=== PATIENT | male | born 1960 | race Caucasian/White ===

== ENCOUNTER 2017-07-07 10:00 | Day surgery (SDC) | payer OTHER ==
[2017-07-07] VITALS (17 sets, daily range): BP systolic 113–147; BP diastolic 65–80; PULSE 56–78; RESP 10–22; Ht 165.1 cm; Wt 72.7 kg
[~2017-07-07] VITALS: Ht 165.1 cm; Wt 72.7 kg
[~2017-07-07 10:00] MED LIST: LEVO25TA53 PO
[2017-07-07] MEDS ORDERED: EPINEPHrine 1 MG INJ ONE (12:09)
[2017-07-07] MEDS ORDERED: LIDOCAINE 1%/EPI 30 ML INJ ONE (12:09)
[2017-07-07] MEDS ORDERED: COCAINE 4% 4 ML TOP ONE (12:09)
[2017-07-07] MEDS ORDERED: BACITRACIN/POLYMYXIN 28.35 GM OINT TOP ONE (12:09)
[2017-07-07] MEDS ORDERED: GLYCOPYRROLATE 0.4 MG INJ ONE ×2 (12:22→12:58)
[2017-07-07] MEDS ORDERED: CEFAZOLIN 1 GM INJ ONE (12:22)
[2017-07-07] MEDS ORDERED: MIDAZOLAM 1 MG/ML 2 ML INJ ONE (12:22)
[2017-07-07] MEDS ORDERED: PROPOFOL 20 ML ONE (12:22)
[2017-07-07] MEDS ORDERED: FENTAnyl 50 MCG/ML VIAL ONE (12:22)
[2017-07-07] MEDS ORDERED: NEOSTIGMINE 3 MG/3 ML SYRINGE ONE ×2 (12:22→12:58)
[2017-07-07] MEDS ORDERED: ONDANSETRON 4 MG INJ ONE (12:22)
[2017-07-07] MEDS ORDERED: DEXAMETHASONE 4 MG/ML 1 ML INJ ONE (12:22)
[2017-07-07] MEDS ORDERED: ROCURONIUM 50 MG INJ ONE (12:22)
--- NOTE | 2017-07-07 12:32 | HPN ---
Date/Time of Note Date/Time of Note DATE: 07/07/17 TIME: 12:32 Interval H&P Admission Note Pt. seen H&P reviewed: No system changes THERESA OLIVAREZ MD Jul 07, 2017 12:32
[2017-07-07] MEDS ORDERED: IPRATROPIUM (NEB) 0.5 MG/2.5 ML AMP HHN PRN (13:00)
[2017-07-07] MEDS ORDERED: MIDAZOLAM 1 MG/ML 2 ML INJ IV PRN (13:00)
[2017-07-07] MEDS ORDERED: LABETALOL HCL 20MG INJ IV PRN (13:00)
[2017-07-07] MEDS ORDERED: ALBUTEROL 0.083% (NEB) 2.5 MG/3 ML AMP HHN PRN (13:00)
[2017-07-07] MEDS ORDERED: OXYCODONE/ACETAMINOPHEN (5/325) TAB PO PRN ×3 (13:00→13:30)
[2017-07-07] MEDS ORDERED: hydrALAzine 20 MG INJ IV PRN (13:00)
[2017-07-07] MEDS ORDERED: MEPERIDINE 25 MG INJ IV PRN (13:00)
[2017-07-07] MEDS ORDERED: HYDROmorphONE (0.2 MG/ML) 10ML SYG IV PRN ×2 (13:00)
[2017-07-07] MEDS ORDERED: EPHEDrine SULFATE 50 MG/5 ML SYG IV PRN (13:00)
[2017-07-07] MEDS ORDERED: TRIMETHOBENZAMIDE 100 MG/ML VIAL IM PRN (13:00)
[2017-07-07] MEDS ORDERED: FENTAnyl 50 MCG/ML VIAL IV PRN ×2 (13:00)
[2017-07-07] MEDS ORDERED: DIPHENHYDRAMINE 50 MG INJ IV PRN (13:00)
[2017-07-07] MEDS ORDERED: ONDANSETRON 4 MG INJ IV PRN (13:00)
--- NOTE | 2017-07-07 13:15 | OPR ---
Date/Time of Note Date/Time of Note DATE: 07/07/17 TIME: 13:13 Operative Report Procedure Date: Jul 07, 2017 Preoperative Diagnosis DNS, ITH Postoperative Diagnosis Same Operation/Procedure Performed Septoplaty, submucous resection of inferior turbinates Surgeon Theresa Ravi Autocad Operator None Anesthesia Type: general Estimated Blood Loss: 10 - 50 ml's Transfusion none Specimen None Grafts/Implants none Complications none Pt Condition Post Procedure: stable Disposition: PACU Indications Nasal congestion, unresponsive to medical management. Procedure Description Description of procedure: The patient was identified in the holding area. We had a discussion to confirm understanding of all indications risks benefits alternatives and postoperative care associated with the operation. The patient signed informed consent was taken to the operating room. The patient was laid supine on the operating room table and general anesthesia was achieved without difficulty. The face was draped in sterile fashion and the nose was packed with 4% cocaine pledgets. The nasal septum was infiltrated with 5 cc of 1% lidocaine with epinephrine in the submucoperiosteal plane bilaterally. A left sided [place] incision was made and submucoperichondreal flaps were raised. The bony cartilaginous junction of the septum was identified and entered. A deviated segments of bone and cartilage were isolated. A double- action scissor was used to transect the bony deviated segment of the skull base after which a Mandie forcep was used to resect deviated segment of bone and cartilage. Care was taken to avoid excess cartilaginous resection. The flaps were returned to normal position and anterior rhinoscopy reveals midline septum. At this point the right inferior turbinate was medialized with a [place] elevator. The Coblation wand on a setting of 6 was used to enter the turbinate in the inferior medial submucosal compartment. 10 seconds of Coblation were performed at the 3rd 2nd and 1st edwards after which the turbinate was crushed laterally into the lateral nasal wall with a [place] elevator. The contralateral turbinate was addressed in similar fashion to complete the bilateral submucous resection and lateral fracturing of the inferior turbinates. Septal flaps were replaced and secured with a 40 fast-absorbing gut whip stitch. A Merocel pack was placed on each side. The patient was awakened, extubated and taken to the PACU in stable condition. Complications: None. THERESA RAVI MD Jul 07, 2017 13:15
[2017-07-07] MEDS: FENTAnyl 50 MCG/ML VIAL IV PRN ×2 (13:31→13:38)
[2017-07-07] MEDS: HYDROmorphONE (0.2 MG/ML) 10ML SYG IV PRN ×3 (13:51→14:06)
== END 2017-07-07 15:30 | disposition home or self-care (01) ==
LOC: SUR 10:00 → SDS 10:00 → SUR 15:30
PROVIDERS: ATTEND Otolaryngology
DX: J34.2 Deviated nasal septum (principal); E03.9 Hypothyroidism, unspecified
CPT/HCPCS: 30140; 30520; J0171; J0690; J1100; J1170; J2250; J2405; J3010; Z7512; Z7610; J2710

== ENCOUNTER 2019-03-04 17:41 | Inpatient (IN) | payer OTHER ==
[~2019-03-04] VITALS: Ht 165.1 cm; Wt 72.0 kg
[~2019-03-04 17:41] MED LIST changes: -LEVO25TA53 PO; +LEVO25TA6 PO
[2019-03-04] MEDS ORDERED: KETOROLAC 30 MG INJ IM STA (18:04)
[2019-03-04] MEDS ORDERED: ONDANSETRON (ODT) 4 MG TAB ODT STA (18:04)
[2019-03-04] MEDS ORDERED: HYDROmorphONE 1 MG/ML SYG IV STA (18:16)
[2019-03-04] MEDS ORDERED: ONDANSETRON 4 MG INJ IV STA ×2 (18:16→21:39)
[2019-03-04] MEDS ORDERED: SOD CHLORIDE 0.9% 1,000 ML IV STA (18:16)
[2019-03-04] MEDS ORDERED: KETOROLAC 30 MG INJ IV STA (18:16)
[2019-03-04] MEDS ORDERED: HYDROmorphONE 2 MG/ML SYG IV STA ×2 (19:42→21:39)
[2019-03-04] MEDS ORDERED: ONDANSETRON 4 MG INJ IV PRN ×2 (20:00→21:30)
[2019-03-04] MEDS ORDERED: ACETAMINOPHEN 325 MG TAB PO PRN ×2 (20:00→21:30)
--- NOTE | 2019-03-04 20:38 | ERD ---
ER Documentation Chief Complaint Chief Complaint left flank pain w/blood in urine since last night HPI Patient is a 58-year-old male with a history of kidney stone and thyroid disease who presents with left lower quadrant abdominal pain and flank pain. It started at 8 AM and has been constant and sharp in nature. He went to [facility] today and was discharged. He was given [place] and Flomax. He came back to the emergency department because his pain was not controlled with the [place] at home and is having significant pain. Upon review of old medical records this is the patient's second visit to the ER since 2008. ROS All systems reviewed and are negative except as per history of present illness. Medications Home Meds Reported Medications Levothyroxine Sodium* (Levothyroxine Sodium*) 25 Mcg Tablet, 25 MCG PO BEFORE BREAKFAST, #30 TAB 07/06/17 Allergies Allergies: Coded Allergies: No Known Allergy (Verified , 07/07/17) PMhx/Soc History of Surgery: No Anesthesia Reaction: No Hx Neurological Disorder: No Hx Respiratory Disorders: Yes (ALLERGIC RHINITIS) Hx Cardiac Disorders: No Hx Psychiatric Problems: No Hx Miscellaneous Medical Probl: No Hx Alcohol Use: Yes (OCCASIONA) Hx Substance Use: No Hx Tobacco Use: No Smoking Status: Never smoker FmHx Family History: No diabetes Physical Exam Vitals Vital Signs Date Temp Pulse Resp B/P (MAP) Pulse Ox O2 O2 Flow FiO2 Time Delivery Rate 03/04/19 98.1 72 18 121/59 99 17:54 (79) Physical Exam Const: Moderate distress Head: Atraumatic Eyes: Normal Conjunctiva ENT: Normal External Ears, Nose and Mouth. Neck: Full range of motion. No meningismus. Resp: Clear to auscultation bilaterally Cardio: Regular rate and rhythm, no murmurs Abd: Soft, left lower quadrant tenderness to palpation Skin: No petechiae or rashes Back: No midline or flank tenderness Ext: No cyanosis, or edema Neur: Awake and alert Psych: Normal Mood and Affect Result Diagram: 03/04/19181303/04/191813 Results 24 hrs Laboratory Tests Test 03/04/19 18:14 White Blood Count 11.9 10^3/ul Red Blood Count 4.64 10^6/ul Hemoglobin 14.7 g/dl Hematocrit 43.6 % Mean Corpuscular Volume 94.0 fl Mean Corpuscular Hemoglobin 31.7 pg Mean Corpuscular Hemoglobin Concent 33.7 g/dl Red Cell Distribution Width 12.2 % Platelet Count 164 10^3/UL Mean Platelet Volume 9.8 fl Immature Granulocytes % 0.400 % Neutrophils % 76.3 % Lymphocytes % 11.2 % Monocytes % 7.5 % Eosinophils % 4.1 % Basophils % 0.5 % Nucleated Red Blood Cells % 0.0 /100WBC Immature Granulocytes # 0.050 10^3/ul Neutrophils # 9.0 10^3/ul Lymphocytes # 1.3 10^3/ul Monocytes # 0.9 10^3/ul Eosinophils # 0.5 10^3/ul Basophils # 0.1 10^3/ul Nucleated Red Blood Cells # 0.0 10^3/ul Sodium Level 138 mmol/L Potassium Level 4.3 mmol/L Chloride Level 106 mmol/L Carbon Dioxide Level 26 mmol/L Anion Gap 6 Blood Urea Nitrogen 15 mg/dl Creatinine 0.99 mg/dl Est Glomerular Filtrat Rate mL/min > 60 mL/min Glucose Level 130 mg/dl Calcium Level 9.3 mg/dl Total Bilirubin 0.7 mg/dl Direct Bilirubin 0.00 mg/dl Indirect Bilirubin 0.7 mg/dl Aspartate Amino Transf (AST/SGOT) 32 IU/L Alanine Aminotransferase (ALT/SGPT) 28 IU/L Alkaline Phosphatase 99 IU/L Total Protein 6.9 g/dl Albumin 4.1 g/dl Globulin 2.80 g/dl Albumin/Globulin Ratio 1.46 Lipase 1420 U/L Current Medications Medications Dose Sig/Benson Start Time Status Last (Trade) Ordered Route PRN Stop Time Admin Dose Reason Admin Ketorolac 30 mg ONCE STAT 03/04/19 DC Tromethamine IM 18:04 03/04/19 (Toradol) 18:17 Ondansetron 4 mg ONCE STAT 03/04/19 DC HCl (Zofran ODT 18:04 03/04/19 Odt) 18:17 Sodium 1,000 ml @ Q1H STAT 03/04/19 DC 03/04/19 Chloride 1,000 mls/hr IV 18:16 03/04/19 18:23 19:15 1 mg ONCE STAT 03/04/19 DC 03/04/19 Hydromorphone IV 18:16 03/04/19 18:24 HCl 18:18 (Dilaudid) Ondansetron 4 mg ONCE STAT 03/04/19 DC 03/04/19 HCl (Zofran IV 18:16 03/04/19 18:24 Inj) 18:18 Ketorolac 30 mg ONCE STAT 03/04/19 DC 03/04/19 Tromethamine IV 18:16 03/04/19 18:24 (Toradol) 18:18 1 mg ONCE STAT 03/04/19 DC 03/04/19 Hydromorphone IV 19:42 03/04/19 19:46 HCl 19:43 (Dilaudid) Ondansetron 4 mg BRIDGE ORDER 03/04/19 HCl (Zofran PRN IV 20:00 Inj) NAUSEA/VOMITI 03/05/19 19:59 NG 650 mg ER BRIDGE 03/04/19 Acetaminophen PRN PO 20:00 (Tylenol .MILD PAIN 03/05/19 19:59 Tab) 1-3 OR TEMP Procedures/MDM CT scan of the abdomen and pelvis shows 4 mm kidney stone per radiology. Patient is a 58-year-old male who presents with significant abdominal and flank pain. He was found to have a 4 mm obstructing kidney stone. He was also found to have acute pancreatitis with a lipase of 1420. The patient was given 2 doses of Dilaudid. Urine sample is pending. The patient will be admitted to the care of Dr. Ugarte to a medical surgical bed. Dr. Higgins will consult on the patient as well from urology. Departure Diagnosis: Primary Impression: Pancreatitis Chronicity: acute Pancreatitis type: unspecified pancreatitis type Acute pancreatitis complication: unspecified Qualified Codes: K85.90 - Acute pancreatitis without necrosis or infection, unspecified Additional Impressions: Kidney stone Flank pain Condition: TANNER Scott MD Mar 04, 2019 20:38
--- NOTE | 2019-03-04 20:45 | CONS ---
Assessment/Plan Assessment/Plan Hospital Course (Demo Recall) 58-year-old male presented to the emergency room because of persistent left flank pain associated with nausea and vomiting. He initially went to [facility] and was sent home on [place] and tamsulosin. However the oral medication was not controlling his pain so he presented to the hospital at [facility]. He also reports having hematuria. CT scan of the abdomen and pelvis did show: 4 mm stone in the distal left ureter results in mild left-sided perinephric fat stranding and mild ectasia of the left ureter. No evidence of bowel obstruction or inflammation. Atherosclerotic disease is present. Patient continues to have left flank pain and that radiates to his left testicle. He still has nausea but no vomiting. Impression: 4 mm distal left ureteral stone causing him the pain in addition to the nausea and vomiting and the hematuria. He should be able to pass the stone on his own. Plan: Strain the urine for stones, pain medications, KUB, tamsulosin 0.4 mg daily. Consultation Date/Type/Reason Admit Date/Time Date of Consultation: Mar 04, 2019 Type of Consult Urology Reason for Consultation Distal left ureteral stone Requesting Provider: SAMUEL CROOK Date/Time of Note DATE: 03/04/19 TIME: 20:44 Hx of Present Illness 58-year-old male presented to the emergency room because of persistent left flank pain associated with nausea and vomiting. He initially went to [facility] and was sent home on [place] and tamsulosin. However the oral medication was not controlling his pain so he presented to the hospital at [facility]. He also reports having hematuria. CT scan of the abdomen and pelvis did show: 4 mm stone in the distal left ureter results in mild left-sided perinephric fat stranding and mild ectasia of the left ureter. No evidence of bowel obstruction or inflammation. Atherosclerotic disease is present. Patient continues to have left flank pain and that radiates to his left testicle. He still has nausea but no vomiting. Constitutional: no complaints Eyes: no complaints ENT: no complaints Respiratory: no complaints; No wheezing Cardiovascular: no complaints; No chest pain Gastrointestinal: nausea, vomiting (On admission) Genitourinary: flank pain (Left side) Musculoskeletal: no complaints Skin: no complaints Neurologic: no complaints Endocrine: other (Hypothyroidism) Lymphatic: no complaints Psychological: no complaints Past Medical History Medical History: hypothyroid Home Meds Reported Medications Levothyroxine Sodium* (Levothyroxine Sodium*) 25 Mcg Tablet, 25 MCG PO BEFORE BREAKFAST, #30 TAB 07/06/17 Medications Current Medications Ondansetron HCl (Zofran Inj) 4 mg BRIDGE ORDER PRN IV NAUSEA/VOMITING Last administered on 03/04/19at 20:39; Admin Dose 4 MG; Start 03/04/19 at 20:00; Stop 03/05/19 at 19:59 Acetaminophen (Tylenol Tab) 650 mg ER BRIDGE PRN PO .MILD PAIN 1-3 OR TEMP; Start 03/04/19 at 20:00; Stop 03/05/19 at 19:59 Allergies: Coded Allergies: No Known Allergy (Verified , 07/07/17) Past Surgical History Past Surgical Hx: other (Left shoulder surgery) Social History Alcohol Use: occasionally Smoking Status: Never smoker Drug Use: none Exam/Review of Systems Exam Vitals Vital Signs Date Temp Pulse Resp B/P (MAP) Pulse Ox O2 O2 Flow FiO2 Time Delivery Rate 03/04/19 98.1 72 18 121/59 99 17:54 (79) Constitutional: alert Psych: no complaints Head: normocephalic Eyes: nl conjunctiva ENMT: nl external ears & nose Neck: supple Respiratory: normal air movement; No wheezing Cardiovascular: No jugular venous distention (JVD) Gastrointestinal: soft Genitourinary - Male: nl penis, nl scrotum, CVA tenderness (Left side) Musculoskeletal: nl extremities to inspection Extremities: No calf tenderness Neurological: nl mental status Skin: nl turgor Results Result Diagram: 03/04/19181303/04/194 Results 24hrs Laboratory Tests Test 03/04/19 18:14 White Blood Count 11.9 H Red Blood Count 4.64 L Hemoglobin 14.7 Hematocrit 43.6 Mean Corpuscular Volume 94.0 Mean Corpuscular Hemoglobin 31.7 Mean Corpuscular Hemoglobin Concent 33.7 Red Cell Distribution Width 12.2 Platelet Count 164 Mean Platelet Volume 9.8 Immature Granulocytes % 0.400 Neutrophils % 76.3 Lymphocytes % 11.2 L Monocytes % 7.5 Eosinophils % 4.1 Basophils % 0.5 Nucleated Red Blood Cells % 0.0 Immature Granulocytes # 0.050 H Neutrophils # 9.0 H Lymphocytes # 1.3 Monocytes # 0.9 Eosinophils # 0.5 Basophils # 0.1 Nucleated Red Blood Cells # 0.0 Sodium Level 138 Potassium Level 4.3 Chloride Level 106 Carbon Dioxide Level 26 Anion Gap 6 Blood Urea Nitrogen 15 Creatinine 0.99 Est Glomerular Filtrat Rate mL/min > 60 Glucose Level 130 Calcium Level 9.3 Total Bilirubin 0.7 Direct Bilirubin 0.00 Indirect Bilirubin 0.7 Aspartate Amino Transf (AST/SGOT) 32 Alanine Aminotransferase (ALT/SGPT) 28 Alkaline Phosphatase 99 Total Protein 6.9 Albumin 4.1 Globulin 2.80 Albumin/Globulin Ratio 1.46 Lipase [address] scan of the abdomen and pelvis: 4 mm stone in the distal left ureter results in mild left-sided perinephric fat stranding and mild ectasia of the left ureter. No evidence of bowel obstruction or inflammation. Atherosclerotic disease is present. Medications Medication Current Medications Ondansetron HCl (Zofran Inj) 4 mg BRIDGE ORDER PRN IV NAUSEA/VOMITING Last administered on 03/04/19at 20:39; Admin Dose 4 MG; Start 03/04/19 at 20:00; Stop 03/05/19 at 19:59 Acetaminophen (Tylenol Tab) 650 mg ER BRIDGE PRN PO .MILD PAIN 1-3 OR TEMP; Start 03/04/19 at 20:00; Stop 03/05/19 at 19:59 JACINTA ONEILL MD Mar 04, 2019 20:45
[2019-03-04] MEDS: SOD CHLORIDE 0.9% 1,000 ML IV SCH (21:21)
[2019-03-04] MEDS ORDERED: DOCUSATE SODIUM 100 MG CAP PO PRN (21:30)
[2019-03-04] MEDS ORDERED: NACL 0.9% 3 ML SYG IV SCH (21:30)
[2019-03-04] MEDS: TAMSULOSIN (SR) 0.4 MG CAP PO ONE ×2 (21:30→23:09)
[2019-03-04] MEDS ORDERED: BISACODYL (EC) 5 MG TAB PO PRN (21:30)
--- NOTE | 2019-03-04 22:19 | HP ---
Date/Time of Note Date/Time of Note DATE: 03/04/19 TIME: 22:18 Assessment/Plan VTE Prophylaxis SCD applied (from Nsg): Yes Pharmacological prophylaxis: NA/contraindicated Pharm contraindication: low risk/ambulating Lines/Catheters IV Catheter Type (from Nrsg): Saline Lock Assessment/Plan Hospital Course This is a 58-year-old male being admitted to the [facility] floor for: #1 left-sided renal colic: Secondary to left-sided 4 mm nephrolithiasis. Aggressive IV fluid hydration with normal saline at 150 cc an hour. PRN Dilaudid, Toradol for pain. Flomax. Dr. sainz of urology has been consulted by the er. Will obtain a urinalysis. Patient is afebrile #2 chemical pancreatitis: Patient has a lipase level of 1400. He denies any abdominal pain, and epigastric non tender to deep palpation. We will keep the patient n.p.o. except meds. Will provide aggressive IV fluid hydration with normal saline. We will repeat a lipase in the a.m. Patient denies any alcohol use. Ultrasound of the gallbladder and CT of the abdomen pelvis did not show any signs of acute pancreatitis or any gallstones. #3 hypothyroidism: Continue levothyroxine, check TSH #4 right testicle symphysis: 2 mm simple cyst in peripheral upper right testicle. Urology is already been consulted. #5 DVT GI prophylaxis: SCDs, no GI prophylaxis indicated Further treatment strategy will be implemented as per the clinical course. Result Diagram: 03/04/194 03/04/19 1814 Results 24hrs Laboratory Tests Test 03/04/19 18:14 White Blood Count 11.9 H Red Blood Count 4.64 L Hemoglobin 14.7 Hematocrit 43.6 Mean Corpuscular Volume 94.0 Mean Corpuscular Hemoglobin 31.7 Mean Corpuscular Hemoglobin Concent 33.7 Red Cell Distribution Width 12.2 Platelet Count 164 Mean Platelet Volume 9.8 Immature Granulocytes % 0.400 Neutrophils % 76.3 Lymphocytes % 11.2 L Monocytes % 7.5 Eosinophils % 4.1 Basophils % 0.5 Nucleated Red Blood Cells % 0.0 Immature Granulocytes # 0.050 H Neutrophils # 9.0 H Lymphocytes # 1.3 Monocytes # 0.9 Eosinophils # 0.5 Basophils # 0.1 Nucleated Red Blood Cells # 0.0 Sodium Level 138 Potassium Level 4.3 Chloride Level 106 Carbon Dioxide Level 26 Anion Gap 6 Blood Urea Nitrogen 15 Creatinine 0.99 Est Glomerular Filtrat Rate mL/min > 60 Glucose Level 130 Calcium Level 9.3 Total Bilirubin 0.7 Direct Bilirubin 0.00 Indirect Bilirubin 0.7 Aspartate Amino Transf (AST/SGOT) 32 Alanine Aminotransferase (ALT/SGPT) 28 Alkaline Phosphatase 99 Total Protein 6.9 Albumin 4.1 Globulin 2.80 Albumin/Globulin Ratio 1.46 Lipase 1420 H HPI/ROS Admit Date/Time Admit Date/Time Hx of Present Illness Chief complaint: Left-sided flank pain This is a 58-year-old male with a history of kidney stone and thyroid disease who presents with left lower quadrant abdominal pain and flank pain. It started at 8 AM and has been constant and sharp in nature. He went to [facility] today and was discharged. He was given [place] and Flomax. He came back to the emergency department because his pain was not controlled with the [place] at home and is having significant pain. Patient reports that he had left flank pain is rating down to his left lower abdomen. He did have an episode of vomiting. He denies any abdominal pain. He denies any recent alcohol use. Allergies: NKDA Medications: Levothyroxine 25 mg p.o. daily ROS Const: As per HPI Eyes : No pain discharge or redness or change in visual acuity ENT: No pain, sore throat, congestion, congestion, dysphagia or discharge Respiratory: No shortness of breath, cough, sputum, wheezing, or pleuritic pain Cardiovascular: No chest pain, palpitation, PND, or edema GI : no change in appetite, abdominal pain, nausea, vomiting, diarrhea, constipation, or change in the color his stool Genitourinary: As per HPI Musculoskeletal: No joint pain, back pain, neck pain, restricted range of motion in neck or joints Skin: No rash, bruising or hives Neuro: No headache, dizziness, syncope, seizure, focal weakness Endocrine: No polyuria, polydipsia, temperature intolerance Psych: No hallucination, depression, anxiety or suicidal ideation PMH/Family/Social Past Medical History Nephrolithiasis Hypothyroidism Medications Current Medications Ondansetron HCl (Zofran Inj) 4 mg BRIDGE ORDER PRN IV NAUSEA/VOMITING Last administered on 03/04/19at 20:39; Admin Dose 4 MG; Start 03/04/19 at 20:00; Stop 03/05/19 at 19:59 Acetaminophen (Tylenol Tab) 650 mg ER BRIDGE PRN PO .MILD PAIN 1-3 OR TEMP; Start 03/04/19 at 20:00; Stop 03/05/19 at 19:59 Sodium Chloride 1,000 ml @ 150 mls/hr Q6H40M IV ; Start 03/04/19 at 21:21 IV Flush (NS 3 ml) 3 ml PER PROTOCOL IV ; Start 03/04/19 at 21:30 Ondansetron HCl (Zofran Inj) 4 mg Q6H PRN IV NAUSEA/VOMITING; Start 03/04/19 at 21:30 Acetaminophen (Tylenol Tab) 650 mg Q6H PRN PO .PAIN 1-3 OR TEMP; Start 03/04/19 at 21:30 Hydromorphone HCl (Dilaudid) 0.5 mg Q4H PRN IV .SEVERE PAIN 7-10; Start 03/04/19 at 21:30 Docusate Sodium (Colace) 100 mg Q12H PRN PO .CONSTIPATION; Start 03/04/19 at 21:30 Bisacodyl (Dulcolax) 5 mg DAILY PRN PO .CONSTIPATION; Start 03/04/19 at 21:30 Tamsulosin HCl (Flomax) 0.4 mg BID PO ; Start 03/05/19 at 09:00 Coded Allergies: No Known Allergy (Verified , 07/07/17) Past Surgical History Left shoulder surgery Family History Significant Family History: no pertinent family hx Social History Alcohol Use: none Smoking Status: Never smoker Drug Use: none Exam/Review of Systems Vital Signs Vitals Vital Signs Date Temp Pulse Resp B/P (MAP) Pulse Ox O2 O2 Flow FiO2 Time Delivery Rate 03/04/19 70 13 100/59 96 Room Air 21:15 (73) 03/04/19 98.1 17:54 Exam Exam General: Patient is a pleasant male currently lying in bed in no acute distress HEENT: Atraumatic, normocephalic. The pupils are equal, round and reactive. Extraocular motor are intact Neck: Supple with full range of motion. No rigidity or meningismus Chest: Nontender Lungs: Clear to auscultation bilaterally no crackles rales or wheezing Heart: Normal S1-S2, Regular rhythm and rate. No murmur, S3, or S4 Abdomen: Soft , mild suprapubic tenderness palpation, no epigastric tenderness to deep palpation. nondistended , bowel sounds are present. No guarding no rebound tenderness , No masses or organomegaly. No CVA tenderness bilaterally (though he did receive pain medications earlier). Extremities: Normal to inspection, no edema no cyanosis Neurologic: Normal mental status, speech normal, cranial nerves II through XII are intact, motor and sensory are intact, no focal weakness Additional Comments PROCEDURE: US Abdomen (right upper quadrant). CLINICAL INDICATION: Right upper quadrant abdomen pain. TECHNIQUE: Multiple real-time longitudinal and transverse images of the right upper quadrant of the abdomen were acquired utilizing a curved array transducer. Images were reviewed on a high-resolution PACS workstation. COMPARISON: 09/24/2018 FINDINGS: The liver is normal in size and normal in echogenicity. There is no focal hepatic lesion. Color Doppler and pulsed Doppler sonography demonstrate normal antegrade flow in the portal vein. The gallbladder is normal with no stones or wall thickening. The bile ducts are normal with the common bile duct measuring 4.2 mm in diameter. The visualized portions of the pancreas are unremarkable with obscuration of the tail of the pancreas. No free fluid is present. The right kidney measures 10.6 cm. There is normal echogenicity of the right kidney. The left kidney measures 10.8 cm. There is no perinephric fluid collection. There are several small echogenic focus within the left kidney. The largest measures 5 mm. IMPRESSION: Left nephrolithiasis. No hydronephrosis. No cholelithiasis. No biliary dilatation. RPTAT: QQ Physician Pelon Date Time Electronically viewed and signed by Physician Pelon on 03/04/2019 20:55 RD/ CC: TANNER SR MD [id number] PROCEDURE: XR Abdomen. CLINICAL INDICATION: Flank pain TECHNIQUE: Supine AP view of the abdomen. COMPARISON: CT abdomen pelvis dated 03/04/2019 FINDINGS: There are no dilated loops of small bowel to suggest a bowel obstruction. Gas and stool are seen within nondilated large bowel. No abnormal calcifications are identified. The distal left ureteral stone seen in the prior CT is not visible in this examination. IMPRESSION: The distal left ureteral stone seen in the prior CT is not visible in this examination. Nonobstructive bowel gas pattern. RPTAT: HTAR .Trevor Louie MD, MD Date Time Electronically viewed and signed by .Trevor Louie MD, MD on 03/04/2019 20:45 .R/ CC: TANNER SR MD [id number] PROCEDURE: CT abdomen and pelvis without contrast. CLINICAL INDICATION: Abdominal pain. TECHNIQUE: CT scan of the abdomen and pelvis without contrast was performed on a multi-slice CT scanner . Sagittal and coronal reformatted images were obtained from the axial source images. One or more of the following dose reduction techniques were used: - Automated exposure control. - Adjustment of the mA and/or kV according to patient size. - Use of iterative reconstruction technique. DICOM images are available DLP 601.2 mGycm. CTDIvol 10.1 mGy COMPARISON: 02/14/2014 FINDINGS: Fine detail of the soft tissues is limited secondary to the lack of IV contrast. Evaluation for enhancing lesions cannot be performed. Lower thorax:The lung bases are clear. Coronary artery calcifications are seen in the heart. Liver: There is uniform density of the liver with no gross focal lesion. Biliary: The gallbladder is unremarkable without surrounding inflammation. No biliary dilatation. Pancreas: Homogeneous density of the pancreas without visible focal lesion or cystic abnormality. There is no pancreatic ductal dilatation. Spleen: Unremarkable without enlargement or focal lesion. Adrenal Glands: The adrenal glands are within normal limits without mass. Urinary: There is a stone at the left distal left ureter slightly proximal to the UVJ measuring 4 mm and this results and mild ectasia of the left renal pelvis and ureter with mild fat stranding around the left kidney. No right-sided renal or ureteral stone is present with no right-sided hydronephrosis. Gastrointestinal: No evidence of bowel obstruction or inflammation. The appendix is not visualized. Lymph nodes: There are no enlarged lymph nodes. Vascular: There is aortic atherosclerosis without aneurysmal dilatation. Peritoneum/mesentery: No free fluid or free air. Reproductive organs: The prostate is grossly unremarkable. Musculoskeletal: Degenerative changes are seen in the lumbar spine with no acute osseous abnormality. Small fat containing left knee is present. Other: None IMPRESSION: 4 mm stone in the distal left ureter results in mild left-sided perinephric fat stranding and mild ectasia of the left ureter. No evidence of bowel obstruction or inflammation. Atherosclerotic disease is present. RPTAT: AA .Rere Abbott MD, Date Time Electronically viewed and signed by .Rere Abbott MD, MD on 03/04/2019 19:12 .J/ CC: TANNER SR MD [id number]: US Scrotum. CLINICAL INDICATION: Left testicular pain TECHNIQUE: Multiple sonographic images of the scrotal region were obtained utilizing a linear array transducer with grayscale and color-flow Doppler imaging. The images were reviewed on a high-resolution PACS workstation. COMPARISON: US PELVIS 02/13/2014 FINDINGS: The right testicle is well visualized and has a normal echotexture. There is a 2 mm simple cyst in the peripheral upper right testicle. The right testicle measures right testicle cm. There is normal color-flow arterial and venous flow. The right epididymis is visualized and there is a 2 mm epididymal cyst in the epididymal head. There is normal color-flow. A small right hydrocele. The left testicle is well visualized and has a normal echotexture. No focal areas of abnormal echogenicity are visualized. The left testicle measures left testicle cm. There is normal color-flow, arterial and venous flow. The left epididymis is visualized and is unremarkable in appearance. There is normal color-flow. There is a small left hydrocele. The scrotal wall is unremarkable. No swelling or edema is seen. No other incidental abnormality is identified. IMPRESSION: 2 mm simple cyst in peripheral upper right testicle. No testicular mass seen. Small right epididymal cyst. Small bilateral hydroceles. No evidence of testicular torsion. RPTAT: HJES .Edwin Rg MD, Date Time Electronically viewed and signed by .Edwin Rg MD, on 03/04/2019 19:10 .S/ CC: TANNER SR MD [id number] SAMUEL CROOK Mar 04, 2019 22:19
[2019-03-04 22:50] VITALS: Ht 165.1 cm; Wt 72.0 kg
[2019-03-05] MEDS ORDERED: ONDANSETRON 4 MG INJ IV PRN (02:00)
[2019-03-05] MEDS ORDERED: METOCLOPRAMIDE 10 MG INJ IV PRN (02:30)
[2019-03-05] MEDS: TAMSULOSIN (SR) 0.4 MG CAP PO SCH ×2 (05:06→20:54)
[2019-03-05] MEDS: SOD CHLORIDE 0.9% 1,000 ML IV SCH ×4 (06:31→20:55)
[2019-03-05 07:32] VITALS: BP 105/58; PULSE 68; RESP 18
[2019-03-05] MEDS ORDERED: SOD CHLORIDE 0.9% 500 ML IV ONE (08:30)
--- NOTE | 2019-03-05 09:50 | PN ---
Date/Time of Note Date/Time of Note DATE: 03/05/19 TIME: 09:45 Assessment/Plan VTE Prophylaxis SCD applied (from Nsg): Yes Pharmacological prophylaxis: NA/contraindicated Pharm contraindication: low risk/ambulating Lines/Catheters IV Catheter Type (from Nrsg): Peripheral IV Assessment/Plan Assessment/Plan 58 yo man with L nephrolithiasis. #1 left-sided renal colic: Secondary to left-sided 4 mm nephrolithiasis. Aggressive IV fluid hydration with normal saline at 150 cc an hour. PRN Dil audid, Toradol for pain. Flomax. Dr. Higgins of urology has been consulted. Patient is afebrile. Currently not requiring antibiotics. #2 Elevated lipase: Patient had a lipase level of 1400 on admission, but this has normalized. No epigastric pain or tenderness. He does have nausea and vomited this morning, this may have been due to pain from nephrolithiasis. Will advance diet cautiously. #3 hypothyroidism: Continue levothyroxine #4 right testicle symphysis: 2 mm simple cyst in peripheral upper right testicle. Urology is already been consulted. #4 DVT GI prophylaxis: SCDs, no GI prophylaxis indicated Result Diagram: 03/05/1944003/05/19440 Subjective 24 Hr Interval Summary Free Text/Dictation No acute overnight events. Patient says he vomited once this morning. Last bowel movement yesterday morning. No diarrhea or constipation otherwise. Pain is adequately controlled on current regimen. Exam/Review of Systems Exam Vitals Vital Signs Date Temp Pulse Resp B/P (MAP) Pulse Ox O2 O2 Flow FiO2 Time Delivery Rate 03/05/19 97.8 68 18 105/58 98 Room Air 07:32 (74) Intake and Output 03/04/19 03/04/19 03/05/19 1515:00 23:00 07:00 IntakeIntake Total 1000 ml OutputOutput Total 200 ml BalanceBalance 800 ml Exam General: Patient is a pleasant male currently lying in bed in no acute distress HEENT: Atraumatic, normocephalic. The pupils are equal, round and reactive. Extraocular motor are intact Neck: Supple with full range of motion. No rigidity or meningismus Chest: Nontender Lungs: Clear to auscultation bilaterally no crackles rales or wheezing Heart: Normal S1-S2, Regular rhythm and rate. No murmur, S3, or S4 Abdomen: Soft , moderate L flank and LLQ tenderness to palpation. Nondistended. Normoactive bowel sounds. No guarding or rebound tenderness. Extremities: Normal to inspection, no edema no cyanosis Results Results 24hrs Laboratory Tests Test 03/04/19 18:14 03/05/19 04:41 03/05/19 08:45 White Blood Count 11.9 H 7.9 # Red Blood Count 4.64 L 4.09 L Hemoglobin 14.7 13.1 L Hematocrit 43.6 39.8 L Mean Corpuscular Volume 94.0 97.3 Mean Corpuscular Hemoglobin 31.7 32.0 Mean Corpuscular Hemoglobin Concent 33.7 32.9 Red Cell Distribution Width 12.2 12.3 Platelet Count 164 145 Mean Platelet Volume 9.8 10.1 Immature Granulocytes % 0.400 0.300 Neutrophils % 76.3 74.7 Lymphocytes % 11.2 L 13.0 L Monocytes % 7.5 10.3 Eosinophils % 4.1 1.3 Basophils % 0.5 0.4 Nucleated Red Blood Cells % 0.0 0.0 Immature Granulocytes # 0.050 H 0.020 Neutrophils # 9.0 H 5.9 Lymphocytes # 1.3 1.0 Monocytes # 0.9 0.8 Eosinophils # 0.5 0.1 Basophils # 0.1 0.0 Nucleated Red Blood Cells # 0.0 0.0 Sodium Level 138 138 Potassium Level 4.3 4.8 Chloride Level 106 107 Carbon Dioxide Level 26 28 Anion Gap 6 3 L Blood Urea Nitrogen 15 18 Creatinine 0.99 1.28 H Est Glomerular Filtrat Rate mL/min > 60 58 L Glucose Level 130 107 Calcium Level 9.3 8.5 Total Bilirubin 0.7 0.6 Direct Bilirubin 0.00 0.00 Indirect Bilirubin 0.7 0.6 Aspartate Amino Transf (AST/SGOT) 32 37 Alanine Aminotransferase (ALT/SGPT) 28 26 Alkaline Phosphatase 99 75 Total Protein 6.9 5.9 #L Albumin 4.1 3.4 Globulin 2.80 2.50 Albumin/Globulin Ratio 1.46 1.36 Lipase 1420 H 156 Amylase Level 150 H Urine Color YELLOW Urine Clarity CLEAR Urine pH 5.0 Urine Specific [place] 1.025 Urine Ketones TRACE A Urine Nitrite NEGATIVE Urine Bilirubin NEGATIVE Urine Urobilinogen NEGATIVE Urine Leukocyte Esterase NEGATIVE Urine Microscopic RBC 7 H Urine Microscopic WBC 1 Urine Mucus FEW A Urine Hemoglobin 2+ H Urine Glucose NEGATIVE Urine Total Protein 1+ H Medications Medication Current Medications Sodium Chloride 1,000 ml @ 150 mls/hr Q6H40M IV Last administered on 03/05/19at 06:31; Admin Dose 150 MLS/HR; Start 03/04/19 at 21:21 IV Flush (NS 3 ml) 3 ml PER PROTOCOL IV ; Start 03/04/19 at 21:30 Acetaminophen (Tylenol Tab) 650 mg Q6H PRN PO .PAIN 1-3 OR TEMP; Start 03/04/19 at 21:30 Hydromorphone HCl (Dilaudid) 0.5 mg Q4H PRN IV .SEVERE PAIN 7-10; Start 03/04/19 at 21:30 Docusate Sodium (Colace) 100 mg Q12H PRN PO .CONSTIPATION; Start 03/04/19 at 21:30 Bisacodyl (Dulcolax) 5 mg DAILY PRN PO .CONSTIPATION; Start 03/04/19 at 21:30 Tamsulosin HCl (Flomax) 0.4 mg BID PO Last administered on 03/05/19at 05:06; Admin Dose 0.4 MG; Start 03/05/19 at 09:00 Metoclopramide HCl (Reglan) 10 mg Q6H PRN IV NAUSEA; Start 03/05/19 at 02:30 Ondansetron HCl (Zofran Inj) 4 mg Q4H PRN IV NAUSEA/VOMITING; Start 03/05/19 at 02:00 Levothyroxine Sodium (Synthroid) 25 mcg BEFORE BREAKFAST PO ; Start 03/06/19 at 07:00 AIMEE SABILLON MD Mar 05, 2019 09:50
--- NOTE | 2019-03-05 12:11 | CONS ---
Consult Date/Type/Reason Admit Date/Time Mar 04, 2019 at 20:01 Initial Consult Date 03/04/19 Type of Consultation: Urology Reason for Consultation Distal left ureteral stone Requesting Provider: SAMUEL CROOK Date/Time of Note DATE: 03/05/19 TIME: 12:08 Subjective Patient continues to have pain in the left flank area. He did have hematuria on admission but now the urine is clear. Objective Vitals Vital Signs Date Temp Pulse Resp B/P (MAP) Pulse Ox O2 O2 Flow FiO2 Time Delivery Rate 03/05/19 97.8 68 18 105/58 98 Room Air 07:32 (74) Intake and Output 03/04/19 03/04/19 03/05/19 1515:00 23:00 07:00 IntakeIntake Total 1000 ml OutputOutput Total 200 ml BalanceBalance 800 ml Exam The abdomen is soft, he does have left flank tenderness. Results/Medications Result Diagram: 03/05/19 0441 03/05/19 0441 Results 24 hrs Laboratory Tests Test 03/04/19 18:14 03/05/19 04:41 03/05/19 08:45 White Blood Count 11.9 H 7.9 # Red Blood Count 4.64 L 4.09 L Hemoglobin 14.7 13.1 L Hematocrit 43.6 39.8 L Mean Corpuscular Volume 94.0 97.3 Mean Corpuscular Hemoglobin 31.7 32.0 Mean Corpuscular Hemoglobin Concent 33.7 32.9 Red Cell Distribution Width 12.2 12.3 Platelet Count 164 145 Mean Platelet Volume 9.8 10.1 Immature Granulocytes % 0.400 0.300 Neutrophils % 76.3 74.7 Lymphocytes % 11.2 L 13.0 L Monocytes % 7.5 10.3 Eosinophils % 4.1 1.3 Basophils % 0.5 0.4 Nucleated Red Blood Cells % 0.0 0.0 Immature Granulocytes # 0.050 H 0.020 Neutrophils # 9.0 H 5.9 Lymphocytes # 1.3 1.0 Monocytes # 0.9 0.8 Eosinophils # 0.5 0.1 Basophils # 0.1 0.0 Nucleated Red Blood Cells # 0.0 0.0 Sodium Level 138 138 Potassium Level 4.3 4.8 Chloride Level 106 107 Carbon Dioxide Level 26 28 Anion Gap 6 3 L Blood Urea Nitrogen 15 18 Creatinine 0.99 1.28 H Est Glomerular Filtrat Rate mL/min > 60 58 L Glucose Level 130 107 Calcium Level 9.3 8.5 Total Bilirubin 0.7 0.6 Direct Bilirubin 0.00 0.00 Indirect Bilirubin 0.7 0.6 Aspartate Amino Transf (AST/SGOT) 32 37 Alanine Aminotransferase (ALT/SGPT) 28 26 Alkaline Phosphatase 99 75 Total Protein 6.9 5.9 #L Albumin 4.1 3.4 Globulin 2.80 2.50 Albumin/Globulin Ratio 1.46 1.36 Lipase 1420 H 156 Amylase Level 150 H Urine Color YELLOW Urine Clarity CLEAR Urine pH 5.0 Urine Specific [place] 1.025 Urine Ketones TRACE A Urine Nitrite NEGATIVE Urine Bilirubin NEGATIVE Urine Urobilinogen NEGATIVE Urine Leukocyte Esterase NEGATIVE Urine Microscopic RBC 7 H Urine Microscopic WBC 1 Urine Mucus FEW A Urine Hemoglobin 2+ H Urine Glucose NEGATIVE Urine Total Protein 1+ H Home Meds Reported Medications Levothyroxine Sodium* (Levothyroxine Sodium*) 25 Mcg Tablet, 25 MCG PO BEFORE BREAKFAST, #30 TAB 07/06/17 Medications Current Medications Sodium Chloride 1,000 ml @ 150 mls/hr Q6H40M IV Last administered on 03/05/19at 06:31; Admin Dose 150 MLS/HR; Start 03/04/19 at 21:21 IV Flush (NS 3 ml) 3 ml PER PROTOCOL IV ; Start 03/04/19 at 21:30 Acetaminophen (Tylenol Tab) 650 mg Q6H PRN PO .PAIN 1-3 OR TEMP; Start 03/04/19 at 21:30 Hydromorphone HCl (Dilaudid) 0.5 mg Q4H PRN IV .SEVERE PAIN 7-10; Start 03/04/19 at 21:30 Docusate Sodium (Colace) 100 mg Q12H PRN PO .CONSTIPATION; Start 03/04/19 at 21:30 Bisacodyl (Dulcolax) 5 mg DAILY PRN PO .CONSTIPATION; Start 03/04/19 at 21:30 Tamsulosin HCl (Flomax) 0.4 mg BID PO Last administered on 03/05/19at 05:06; A dmin Dose 0.4 MG; Start 03/05/19 at 09:00 Metoclopramide HCl (Reglan) 10 mg Q6H PRN IV NAUSEA Last administered on 03/05/19at 09:46; Admin Dose 10 MG; Start 03/05/19 at 02:30 Ondansetron HCl (Zofran Inj) 4 mg Q4H PRN IV NAUSEA/VOMITING; Start 03/05/19 at 02:00 Levothyroxine Sodium (Synthroid) 25 mcg BEFORE BREAKFAST PO ; Start 03/06/19 at 07:00 Assessment/Plan Hospital Course (Demo Recall) 58-year-old male presented to the emergency room because of persistent left flank pain associated with nausea and vomiting. He initially went to [facility] and was sent home on [place] and tamsulosin. However the oral medication was not controlling his pain so he presented to the hospital at [facility]. He also reports having hematuria. CT scan of the abdomen and pelvis did show: 4 mm stone in the distal left ureter results in mild left-sided perinephric fat stranding and mild ectasia of the left ureter. No evidence of bowel obstruction or inflammation. Atherosclerotic disease is present. Patient continues to have left flank pain and that radiates to his left testicle. He still has nausea but no vomiting. Since he still have the flank pain he most likely did not pass a stone yet. He had a KUB yesterday and another one today and these did not show the stone. But that does not mean that he passed it. The stone could be obscured by the bowel contents and may be also radiolucent. We will continue with the same management and again he will be able to pass the stone on his own. JACINTA ONEILL MD Mar 05, 2019 12:11
[2019-03-05] MEDS: HYDROmorphONE 0.5 MG/0.5 ML SYG IV PRN (14:01)
[2019-03-05 14:20] VITALS: BP 108/65; PULSE 72; RESP 18
[2019-03-05 19:30] VITALS: BP 122/68; PULSE 66; RESP 18
[2019-03-06] MEDS: SOD CHLORIDE 0.9% 1,000 ML IV SCH ×2 (04:35→11:35)
[2019-03-06] MEDS ORDERED: LEVOTHYROXINE 25 MCG TAB PO SCH (07:00)
[2019-03-06 07:05] VITALS: BP 107/63; PULSE 75; RESP 15
[2019-03-06] MEDS: TAMSULOSIN (SR) 0.4 MG CAP PO SCH (08:36)
--- NOTE | 2019-03-06 11:47 | PDOCDIS ---
Discharge Instructions DIAGNOSIS Discharge Diagnosis Acute nephrolithiasis CONDITION [id number] Patient Condition: [id number] Good HOME CARE INSTRUCTIONS: [id number] Diet Instructions: [id number] Regular ACTIVITY: [id number] Activity Restrictions: [id number] No Restrictions FOLLOW UP/APPOINTMENTS Follow-up Plan 1. Continue tylenol (acetaminophen) or ibuprofen as needed for pain. 2. See your primary care doctor in 1-2 weeks. AIMEE SABILLON MD Mar 06, 2019 11:47
[2019-03-06] MEDS: HYDROmorphONE 0.5 MG/0.5 ML SYG IV PRN (12:48)
[2019-03-06 14:03] VITALS: BP 115/59; PULSE 78; RESP 15
--- NOTE | 2019-03-06 15:02 | DS ---
Date/Time of Note Date/Time of Note DATE: 03/06/19 TIME: 14:57 Discharge Summary Admission/Discharge Info Admit Date/Time Mar 04, 2019 at 20:01 Discharge Date/Time Mar 06, 2019 Discharge Diagnosis Acute nephrolithiasis Patient Condition: Good Hx of Present Illness Chief complaint: Left-sided flank pain This is a 58-year-old male with a history of kidney stone and thyroid disease who presents with left lower quadrant abdominal pain and flank pain. It started at 8 AM and has been constant and sharp in nature. He went to [facility] today and was discharged. He was given Southmayd and Flomax. He came back to the emergency department because his pain was not controlled with the Southmayd at home and is having significant pain. Patient reports that he had left flank pain is rating down to his left lower abdomen. He did have an episode of vomiting. He denies any abdominal pain. He denies any recent alcohol use. Allergies: NKDA Medications: Levothyroxine 25 mg p.o. daily Hospital Course The patient was noted to have lipase of 1400 on arrival. However he did not have epigastric pain and clinically did not appear like pancreatitis. He was having some nausea and vomiting from the kidney stone. The lipase was repeated the next day and was 150. He was started on a regular diet which he tolerated well. CT showed a stone at the left distal left ureter slightly proximal to the UVJ measuring 4 mm without hydronephrosis or pyelonephritis. He had hematuria on admission but the urine soon cleared up. His urine was strained. Early the morning of 03/06 he voided some sediment and blood clots, and flank pain improved. He was discharged uneventfully. Home Meds Reported Medications Levothyroxine Sodium* (Levothyroxine Sodium*) 25 Mcg Tablet, 25 MCG PO BEFORE BREAKFAST, #30 TAB 07/06/17 Follow-up Plan 1. Continue tylenol (acetaminophen) or ibuprofen as needed for pain. 2. See your primary care doctor in 1-2 weeks. Primary Care Provider Not On Staff Doctor Time spent on discharge: > 30 minutes AIMEE SABILLON MD Mar 06, 2019 15:02
== END 2019-03-06 15:05 | disposition home or self-care (01) | DRG 694 ==
LOC: E/R 17:41 → MS1 20:01
PROVIDERS: ADMIT Family Medicine; ATTEND Internal Medicine
DX: N20.0 Calculus of kidney (principal); E03.9 Hypothyroidism, unspecified; N44.2 Benign cyst of testis; R74.8 Abnormal levels of other serum enzymes; Z87.442 Personal history of urinary calculi
CPT/HCPCS: 36415; 74018; 74176; 76705; 76870; 80053; 81001; 82150; 83690; 85025; 87086; 96374; 96375; 96376; J1170; J1885; J2405; J2765; J7030; J7040